=== PATIENT | female | born 1980 | race African-American/Black ===

== ENCOUNTER 2017-03-14 18:57 | Emergency (ER) | payer BC, OTHER ==
[~2017-03-14] VITALS: Ht 157.5 cm; Wt 83.9 kg
[2017-03-14 19:02] VITALS: BP 119/58
[2017-03-14] MEDS ORDERED: CYCL10TA2 PO (19:46)
--- NOTE | 2017-03-14 19:46 | PHYS DOC ---
Past Medical History Past Medical History: No Pertinent History Past Surgical History: No Surgical History Additional Past Surgical Histo: anal abscess, DDD, BULGING DISCS Additional Information: 0.5 PPD Alcohol Use: Occasionally Drug Use: Marijuana Adult General Chief Complaint Chief Complaint: BACK PAIN - NO INJURY [facility] HPI Patient is a 37 year old female presents to the emergency department stating that she has having left back pain and discomfort. She states that the pain starts in her lower back and radiates up into the upper back She states that she wasn't quite sure how she injured it she states that she was trying to turn when the pain occurred. She states that she is having increased pain when lifting her left leg.. Patient denies any loss of bowel or bladder. Patient denies any trauma or injury. Review of Systems Review of Systems Constitutional: Denies fever or chills [] Eyes: Denies change in visual acuity, redness, or eye pain [] HENT: Denies nasal congestion or sore throat [] Respiratory: Denies cough or shortness of breath [] Cardiovascular: No additional information not addressed in HPI [] GI: Denies abdominal pain, nausea, vomiting, bloody stools or diarrhea [] : Denies dysuria or hematuria [] Musculoskeletal: Left lower to mid back pain denies joint pain [] Integument: Denies rash or skin lesions [] Neurologic: Denies headache, focal weakness or sensory changes [] Endocrine: Denies polyuria or polydipsia [] Allergies Allergies Allergies Coded Allergies Type Severity Reaction Last Updated Verified No Known Drug Allergies 09/18/13 No Physical Exam Physical Exam Constitutional: Well developed, well nourished, no acute distress, non-toxic appearance. [] HENT: Normocephalic, atraumatic, bilateral external ears normal, oropharynx moist, no oral exudates, nose normal. [] Eyes: PERRLA, EOMI, conjunctiva normal, no discharge. [] Neck: Normal range of motion, no tenderness, supple, no stridor. [] Cardiovascular:Heart rate regular rhythm, no murmur [] Lungs & Thorax: Bilateral breath sounds clear to auscultation [] Skin: Warm, dry, no erythema, no rash. [] Back: No cervical spine, thoracic spine tenderness noted, patient did have tenderness noted on the left paraspinal area from mid to lower back area. Extremities: No tenderness, no cyanosis, no clubbing, ROM intact, no edema. Increased discomfort noted with lifting of the left leg. Peripheral pulses 2+ good sensation noted to bilateral lower legs Neurologic: Alert and oriented X 3, normal motor function, normal sensory function, no focal deficits noted. [] Psychologic: Affect normal, judgement normal, mood normal. [] Current Patient Data Vital Signs Vital Signs Date Time Temp Pulse Resp B/P (MAP) Pulse Ox O2 Delivery O2 Flow Rate FiO2 03/14/17 19:02 98.1 99 20 98 Room Air 98.1 EKG EKG [] Radiology/Procedures Radiology/Procedures [] Course & Med Decision Making Course & Med Decision Making Pertinent Labs and Imaging studies reviewed. (See chart for details) Patient states that she drove herself here to the emergency department. She was instructed that she can take anywhere from 600-800 mg of ibuprofen every 8 hours with food. Patient will be provided with a prescription for Flexeril to take she was instructed that this medication will cause drowsiness do not take any be alert and oriented. Patient was also instructed to use ice packs on 20 minutes off 20 minutes several times today. Patient agrees with discharge instructions treatment regimens and follow-up recommendations were in which she was instructed to follow-up with her primary care physician in the next 7-10 days. [] Dragon Disclaimer Dragon Disclaimer This electronic medical record was generated, in whole or in part, using a voice recognition dictation system. Departure Departure Impression: Primary Impression: Back strain Disposition: 01 HOME, SELF-CARE Condition: STABLE Referrals: KARL BLISS MD (PCP) Patient Instructions: Back Pain, Adult, [id number] Additional Instructions: Activity as tolerated. Medications as prescribed. Flexeril will cause drowsiness do not take any be alert and oriented. Ibuprofen 600-800 mg every 8 hours with food. Stop taking if you develop an upset stomach. Ice packs on 20 minutes off 20 minutes several times a day. Follow-up to primary care physician next 7-10 days. Return back to emergency prior signs symptoms of become worse. Scripts Cyclobenzaprine Hcl (CYCLOBENZAPRINE HCL) 10 Mg Tablet 10 MG PO TID, #30 TAB Prov: VENUS CARPIO APRN 03/14/17 VENUS CARPIO APRN Mar 14, 2017 19:46
== END 2017-03-14 19:50 | disposition home or self-care (01) ==
LOC: ER 18:57
DX: S39.012A Strain of muscle, fascia and tendon of lower back, initial encounter (principal); S29.012A Strain of muscle and tendon of back wall of thorax, initial encounter; F17.200 Nicotine dependence, unspecified, uncomplicated; F12.10 Cannabis abuse, uncomplicated; X50.9XXA Other and unspecified overexertion or strenuous movements or postures, initial encounter; Y93.89 Activity, other specified; Y99.8 Other external cause status; Y92.89 Other specified places as the place of occurrence of the external cause
CPT/HCPCS: 99283

== ENCOUNTER 2017-04-18 07:59 | Emergency (ER) | payer BC, OTHER ==
[~2017-04-18] VITALS: Ht 154.9 cm; Wt 83.9 kg
[~2017-04-18 07:59] MED LIST: CYCL10TA2 PO
[2017-04-18 08:09] VITALS: BP 128/75
--- NOTE | 2017-04-18 08:34 | PHYS DOC ---
Past Medical History Past Medical History: No Pertinent History Past Surgical History: No Surgical History Additional Past Surgical Histo: anal abscess, DDD, BULGING DISCS Alcohol Use: Occasionally Drug Use: Marijuana Adult General Chief Complaint Chief Complaint: FOOT INJURY PAIN HPI HPI Patient is a 37 year old female presents to the emergency department with a history of taking the trash out last night when she missed the last step and fell. She states she rolled her left ankle. She now has pain in the left knee and left ankle. Swelling noted to the left lateral ankle. No bruising or discoloration noted. Patient states she has not been able to bear weight. Patient denies taking any medication for pain, denies the use of ice packs. Patient has good sensation noted to the foot and toes. Review of Systems Review of Systems Constitutional: Denies fever or chills [] Eyes: Denies change in visual acuity, redness, or eye pain [] HENT: Denies nasal congestion or sore throat [] Respiratory: Denies cough or shortness of breath [] Cardiovascular: No additional information not addressed in HPI [] GI: Denies abdominal pain, nausea, vomiting, bloody stools or diarrhea [] : Denies dysuria or hematuria [] Musculoskeletal: Denies back pain. C/o left knee and left ankle pain Integument: Denies rash or skin lesions [] Neurologic: Denies headache, focal weakness or sensory changes [] Endocrine: Denies polyuria or polydipsia [] Current Medications Current Medications Current Medications Medications (Trade) Dose Ordered Sig/Nia Start Time Stop Time Status Last Admin Dose Admin Ibuprofen (Motrin) 800 mg 1X ONCE 04/18/17 08:45 04/18/17 08:46 DC 04/18/17 08:23 800 MG Allergies Allergies Allergies Coded Allergies Type Severity Reaction Last Updated Verified No Known Drug Allergies 09/18/13 No Physical Exam Physical Exam Constitutional: Well developed, well nourished, no acute distress, non-toxic appearance. [] HENT: Normocephalic, atraumatic, bilateral external ears normal, oropharynx moist, no oral exudates, nose normal. [] Eyes: PERRLA, EOMI, conjunctiva normal, no discharge. [] Neck: Normal range of motion, no tenderness, supple, no stridor. [] Cardiovascular:Heart rate regular rhythm Lungs & Thorax: no respiratory distress Skin: Warm, dry, no erythema, no rash. [] Back: No tenderness Extremities: Left medial knee and left lateral ankle tenderness, no cyanosis, no clubbing, ROM intact, no edema. Patient with swelling to left lateral ankle. Peripheral pulses 2+ cap refill brisk < 2 seconds. Patient is able to move toes without difficulty, Patient with good sensation noted. Neurologic: Alert and oriented X 3, normal motor function, normal sensory function, no focal deficits noted. [] Psychologic: Affect normal, judgement normal, mood normal. [] Current Patient Data Vital Signs Vital Signs Date Time Temp Pulse Resp B/P (MAP) Pulse Ox O2 Delivery O2 Flow Rate FiO2 04/18/17 08:09 98.0 97 20 99 Room Air 98.0 EKG EKG [] Radiology/Procedures Radiology/Procedures [][address] [address] IMAGING REPORT Signed PATIENT: PIERO ANDREWS ACCOUNT: [id number] : 1980 LOCATION: ER AGE: 37 SEX: F EXAM STATUS: REG ER ORD. PHYSICIAN: VENUS CARPIO APRN REASON: fell and twisted ankle and knee, LAST NIGHT, NO SURGERY PROCEDURE: ANKLE LEFT 3V Left ankle radiograph 3 views 04/18/2017 Clinical indication: Twisted left ankle and knee, left ankle pain. Comparison: None. Findings: No acute fracture or traumatic malalignment. There is moderate soft tissue swelling about the ankle. Joint spaces are maintained. Impression: Moderate soft tissue swelling about the ankle without acute osseous abnormality. DICTATED and SIGNED BY: THAIS BERGMAN MD DATE: 04/18/17 0909 CC: VENUS CARPIO APRN; KARL BLISS MD ~ [address] [address] IMAGING REPORT Signed PATIENT: PIERO ANDREWS ACCOUNT: [id number] : 1980 LOCATION: ER AGE: 37 SEX: F EXAM STATUS: PRE ER ORD. PHYSICIAN: VENUS CARPIO APRN REASON: fell and twisted ankle and knee, LAST NIGHT, NO SURGERY PROCEDURE: KNEE LEFT 4V Left knee radiograph 4 views Indication: Fell and twisted ankle and knee last night, left knee pain. Comparison: None. Findings: No acute fracture or traumatic malalignment. Joint spaces are maintained. No significant knee joint effusion. Impression: No acute osseous abnormality. DICTATED and SIGNED BY: THAIS BERGMAN MD DATE: 04/18/17906 CC: VENUS CARPIO APRN; KARL BLISS MD ~ Course & Med Decision Making Course & Med Decision Making Pertinent Labs and Imaging studies reviewed. (See chart for details) X-rays: 4 view knee, 3 view ankle negative for bony abnormality. Patient will be placed in massimo wrap and splint. Patient will be discharged home in stable condition. Signs and symptoms to return to the emergency department has been provided. Patient was encouraged to use Tylenol or ibuprofen for pain and discomfort. Packs on 20 minutes off 20 minutes several times a day elevation as much as possible. We'll provide her with orthopedic name and number to follow- up with she continues to have pain and discomfort within the next week. Have him provided with discharge instructions and treatment regimen. She states she is unable to bear weight on the ankle with the Air-Stirrup splint. She will be placed on crutches. Patient is very upset that she is not getting anything stronger than Tylenol or ibuprofen for pain and discomfort. Explained to patient that with nothing fractured this medication is the treatment of choice. Ice packs elevation is the treatment regimen with the Massimo wrap. Patient starts telling me she has 2 younger children that she has to take care of him be able to get around 2 to help with. Plain to patient that without there being a fracture Tylenol and ibuprofen is the treatment of choice. [] Dragon Disclaimer Dragon Disclaimer This electronic medical record was generated, in whole or in part, using a voice recognition dictation system. Departure Departure Impression: Primary Impression: Left ankle sprain Additional Impression: Left knee pain Disposition: HOME, SELF-CARE Condition: STABLE Referrals: KARL BLISS MD (PCP) LENORE MEDINA II, MD Patient Instructions: Ankle Sprain, [id number], Knee Pain, [id number] Additional Instructions: Activity as tolerated Tylenol or Ibuprofen for pain and discomfort Ice packs on 20 minutes and off 20 minutes several times a day Elevation as much as possible Wear the massimo wrap for the next 5-7 days Wear the air stirrup splint for the 7-10 days Followup with orthopedic in 7-10 days Return to emergency department as needed Problem Qualifiers VENUS CARPIO APRN Apr 18, 2017 08:34
[2017-04-18] MEDS ORDERED: IBUPROFEN 800 MG TABLET. PO ONE (08:45)
--- NOTE | 2017-04-18 09:11 | RAD ---
Left knee radiograph 4 views Indication: Fell and twisted ankle and knee last night, left knee pain. Comparison: None. Findings: No acute fracture or traumatic malalignment. Joint spaces are maintained. No significant knee joint effusion. Impression: No acute osseous abnormality.
--- NOTE | 2017-04-18 09:15 | RAD ---
Left ankle radiograph 3 views 04/18/2017 Clinical indication: Twisted left ankle and knee, left ankle pain. Comparison: None. Findings: No acute fracture or traumatic malalignment. There is moderate soft tissue swelling about the ankle. Joint spaces are maintained. Impression: Moderate soft tissue swelling about the ankle without acute osseous abnormality.
== END 2017-04-18 09:40 | disposition home or self-care (01) ==
LOC: ER 07:59
DX: S93.402A Sprain of unspecified ligament of left ankle, initial encounter (principal); M25.562 Pain in left knee; F12.10 Cannabis abuse, uncomplicated; W00.1XXA Fall from stairs and steps due to ice and snow, initial encounter; Y93.89 Activity, other specified; Y92.89 Other specified places as the place of occurrence of the external cause; Y99.8 Other external cause status
CPT/HCPCS: 29515; 73564; 73610; 99284-25; 99285-25

== ENCOUNTER 2017-12-09 23:32 | Emergency (ER) | payer OTHER, BC ==
[2017-12-10 00:02] LABS: URINE HCG POC HCG NEGATIVE (Negative)
[2017-12-10 00:26] LABS: ADD MAN DIFF? NO
[2017-12-10 00:30] LABS: BASO % 0 % (0-3); EOS # 0.1 x10^3/uL (0.0-0.7); EOS % 1 % (0-3); HEMATOCRIT 35.8 % (36.0-47.0); HEMOGLOBIN 12.2 g/dL (12.0-15.5); LYMPH # 3.4 x10^3/uL (1.0-4.8); LYMPH % 48 % (24-48); MEAN CORPUSCULAR HEMOGLOBIN 34 pg (25-35); MEAN CORPUSCULAR HGB CONC 34 g/dL (31-37); MEAN CORPUSCULAR VOLUME 99 fL (79-100); MONO # 0.4 x10^3/uL (0.0-1.1); MONO % 6 % (0-9); NEUT # 3.3 x10^3uL (1.8-7.7); NEUT % 46 % (31-73); PLATELET COUNT 262 x10^3/uL (140-400); RED BLOOD COUNT 3.61 x10^6/uL (3.50-5.40); RED CELL DISTRIBUTION WIDTH 13.2 % (11.5-14.5); WHITE BLOOD COUNT 7.2 x10^3/uL (4.0-11.0)
[2017-12-10 00:42] LABS: ANION GAP 9 (6-14); BLOOD UREA NITROGEN 11 mg/dL (7-20); CALCIUM 8.2 mg/dL (8.5-10.1); CARBON DIOXIDE 27 mmol/L (21-32); CHLORIDE 108 mmol/L (98-107); GFR 74.7; GLUCOSE 99 mg/dL (70-99); POTASSIUM 3.5 mmol/L (3.5-5.1); SODIUM 144 mmol/L (136-145)
[2017-12-10] MEDS: IV NORMAL SALINE 1000ML BAG 1,000 ML IV (00:45)
[2017-12-10] MEDS: CYCLOBENZAPRINE 10 MG TABLET. PO (01:20)
[2017-12-10] MEDS: AZITHROMYCIN 250 MG TABLET. PO (01:20)
[2017-12-10] MEDS: KETOROLAC 15 MG/ML VIAL. IV (01:21)
[2017-12-10] MEDS: METOCLOPRAMIDE HCL 10 MG/2 ML VIAL. IV (01:21)
== END 2017-12-10 01:39 | disposition home or self-care (01) ==
LOC: ER 23:32
DX: S39.012A Strain of muscle, fascia and tendon of lower back, initial encounter (principal); J32.9 Chronic sinusitis, unspecified; G89.29 Other chronic pain; F12.10 Cannabis abuse, uncomplicated; X58.XXXA Exposure to other specified factors, initial encounter; Y93.89 Activity, other specified; Y99.8 Other external cause status; Y92.89 Other specified places as the place of occurrence of the external cause
CPT/HCPCS: 36415; 80048; 81025; 85025; 96361; 96374; 96375; 99284-25; J1885; J2765; J7030; Q0144

== ENCOUNTER 2021-04-06 12:07 | Emergency (ER) | payer OTHER ==
[~2021-04-06 12:07] MED LIST changes: +AZIT250T PO; +TRAM-48 PO
[2021-04-06] MEDS ORDERED: FAMOTIDINE 20 MG/2 ML VIAL IVP ONE (13:15)
[2021-04-06] MEDS ORDERED: fentaNYL PF VIAL 100 MCG/2 ML VIAL IVP ONE (13:15)
[2021-04-06] MEDS ORDERED: ONDANSETRON PF 4 MG/2 ML VIAL. IVP ONE (13:15)
[2021-04-06 13:21] LABS: BASO # 0.1 x10^3/uL (0.0-0.2); BASO % 1 % (0-3); EOS % 1 % (0-3); HEMATOCRIT 40.3 % (36.0-47.0); HEMOGLOBIN 13.7 g/dL (12.0-15.5); LYMPH # 1.3 x10^3/uL (1.0-4.8); LYMPH % 23 % (24-48); MEAN CORPUSCULAR HEMOGLOBIN 36 pg (25-35); MEAN CORPUSCULAR HGB CONC 34 g/dL (31-37); MEAN CORPUSCULAR VOLUME 105 fL (79-100); MONO # 0.4 x10^3/uL (0.0-1.1); MONO % 7 % (0-9); NEUT # 3.8 x10^3/uL (1.8-7.7); NEUT % 68 % (31-73); PLATELET COUNT 246 x10^3/uL (140-400); RED BLOOD COUNT 3.84 x10^6/uL (3.50-5.40); RED CELL DISTRIBUTION WIDTH 13.7 % (11.5-14.5); WHITE BLOOD COUNT 5.6 x10^3/uL (4.0-11.0)
[2021-04-06 13:25] LABS: BILIRUBIN,URINE NEGATIVE (NEG); CLARITY,URINE CLEAR; COLOR,URINE YELLOW; NITRITE,URINE NEGATIVE (NEG); PH,URINE 6.5 (<5.0-8.0); PROTEIN,URINE NEGATIVE (NEG-TRACE); UROBILINOGEN,URINE 0.2 mg/dL (0.2 mg/dL)
[2021-04-06] MEDS ORDERED: IV NORMAL SALINE 1000ML BAG 1,000 ML IV ONE (13:30)
[2021-04-06 13:33] LABS: AMPHETAMINE/METHAMPHETAMINE NEG (NEG); BARBITURATES NEG (NEG); BENZODIAZEPINES NEG (NEG); CANNABINOIDS POS (NEG); COCAINE POS (NEG); METHADONE NEG (NEG); OPIATES NEG (NEG); PHENCYCLIDINE NEG (NEG)
[2021-04-06 13:41] LABS: CALCIUM 8.9 mg/dL (8.5-10.1); CREATININE 0.8 mg/dL (0.6-1.0); GFR 94.7; POTASSIUM 4.3 mmol/L (3.5-5.1)
[2021-04-06 13:48] LABS: TRICHOMONAS,URINE PRESENT
[2021-04-06 13:48] LABS: ALBUMIN 3.9 g/dL (3.4-5.0); ALBUMIN/GLOBULIN RATIO 1.2 (1.0-1.7); TOTAL BILIRUBIN 0.3 mg/dL (0.2-1.0); TOTAL PROTEIN 7.2 g/dL (6.4-8.2)
[2021-04-06 13:49] LABS: BACTERIA,URINE FEW /HPF (0-FEW)
[2021-04-06] MEDS ORDERED: CONTRAST GIVEN. MC PRN (14:00)
[2021-04-06] MEDS ORDERED: IOHEXOL 300 MG/ML 100ML VIAL. IV ONE (14:00)
--- NOTE | 2021-04-06 14:19 | RAD ---
INDICATION : Reason: RUQ pain / Spl. Instructions: / History: COMPARISON: CT April 2013 TECHNIQUE: Multiple ultrasound images obtained through the abdomen in grayscale and color. FINDINGS: Pancreas: No gross abnormality identified in visualized portions of pancreas. Liver: Borderline echogenic. Mild fatty infiltration not excluded. Gallbladder: Contracted. IVC: Partially distended at level of liver. Common Bile Duct: Not dilated. Right Kidney: No hydronephrosis. IMPRESSION: * Gallbladder contracted without common bile duct dilation. Electronically signed by: Willy Whiting MD (04/06/2021 2:17 PM) [id number]
--- NOTE | 2021-04-06 14:29 | RAD ---
Examination: CT of the abdomen pelvis with IV contrast HISTORY: History of right upper quadrant pain, flank pain COMPARISON: 04/21/2013 Technique: Axial CT images of the abdomen pelvis were performed with IV contrast. Coronal and sagitta l reformats are performed Exposure: One or more of the following individualized dose reduction techniques were utilized for thi s examination: 1. Automated exposure control 2. Adjustment of the mA and/or kV according to patient size 3. Use of iterative reconstruction technique FINDINGS: Mild bibasilar lung atelectasis. No evidence of free air identified in the abdomen. The visualized li lauren, spleen, and adrenals grossly appears unremarkable. The gallbladder is mildly distended. The stom ach is mildly distended. The visualized pancreas grossly appears unremarkable. Small bowel is nondila won. The appendix is normal. Feces and gas identified in the colon. Urinary bladder is mildly distend ed. The bilateral kidneys enhance symmetrically. No evidence of lytic bony destructive lesion. IMPRESSION: No acute intra-abdominal findings. Electronically signed by: Reza Vasquez MD (04/06/2021 2:27 PM) [id number]
[2021-04-06] MEDS ORDERED: metroNIDAZOLE 500 MG TABLET PO ONE (14:30)
[2021-04-06] MEDS ORDERED: cefTRIAXone IV Push 1 GM VIAL. IVP ONE (14:30)
[2021-04-06] MEDS ORDERED: DOXYCYCLINE HYCLATE 100 MG TABLET PO ONE (14:30)
[2021-04-06 15:23] VITALS: BP 142/97
[2021-04-06] MEDS ORDERED: CEPH500T PO (15:38)
[2021-04-06] MEDS ORDERED: DOXY100T PO (15:38)
--- NOTE | 2021-04-06 15:39 | PHYS DOC ---
Past Medical History Past Medical History: No Pertinent History, Other Additional Past Medical Histor: CHRONIC BACK PAIN Past Surgical History: No Surgical History Additional Past Surgical Histo: anal abscess, DDD, BULGING DISCS Smoking Status: Current Every Day Smoker Alcohol Use: Heavy Additional Information: DRINKS 4-5 BEERS DAILY. OVER THE WEEKEND PT DRANK HEAVILY FOR 3 DAYS. Drug Use: Marijuana General Adult EDM: Chief Complaint: ABDOMINAL PAIN HPI: HPI: Patient is a 41 year old female who presents to the ED today complaining of 8 out of 10 right upper quadrant abdominal pain radiating to the right flank region, symptoms began 4 days ago. Patient is also complaining of diarrhea 4 days ago. Denies any fever. She is complaining of odorous vaginal discharge and concern for STDs. Denies any nausea, vomiting.Denies anything specifically exacerbating or relieving her pain. Review of Systems: Review of Systems: Constitutional: Denies fever or chills. [] Eyes: Denies change in visual acuity. [] HENT: Denies nasal congestion or sore throat. [] Respiratory: Denies cough or shortness of breath. [] Cardiovascular: Denies chest pain or edema. Abdomen: Reports right upper quadrant abdominal pain, denies any nausea vomiting, reports diarrhea : Reports malodorous vaginal discharge, Musculoskeletal: Denies back pain or joint pain. [] Integument: Denies rash. [] Neurologic: Denies headache, focal weakness or sensory changes. [] Psychiatric: Denies depression or anxiety. [] Heart Score: C/O Chest Pain: N/A Risk Factors: Risk Factors: DM, Current or recent (<one month) smoker, HTN, HLP, family histo ry of CAD, obesity. Risk Scores: Score 0 - 3: 2.5% MACE over next 6 weeks - Discharge Home Score 4 - 6: 20.3% MACE over next 6 weeks - Admit for Clinical Observation Score 7 - 10: 72.7% MACE over next 6 weeks - Early Invasive Strategies Current Medications: Current Medications Medications (Trade) Dose Ordered Sig/Nia Start Time Stop Time Status Last Admin Dose Admin Ceftriaxone Sodium (Rocephin) 1 gm 1X ONCE 04/06/21 14:30 04/06/21 14:31 DC 04/06/21 15:07 1 GM Doxycycline Hyclate (Vibra-Tab) 100 mg 1X ONCE 04/06/21 14:30 04/06/21 14:31 DC 04/06/21 15:07 100 MG Famotidine (Pepcid Vial) 20 mg 1X ONCE 04/06/21 13:15 04/06/21 13:16 DC 04/06/21 13:57 20 MG Fentanyl Citrate (Fentanyl 2ml Vial) 50 mcg 1X ONCE 04/06/21 13:15 04/06/21 13:16 DC 04/06/21 13:57 50 MCG Info (CONTRAST GIVEN -- Rx MONITORING) 1 each PRN DAILY PRN 04/06/21 14:00 04/08/21 13:59 Iohexol (Omnipaque 300 Mg/ml) 75 ml 1X ONCE 04/06/21 14:00 04/06/21 14:01 DC Metronidazole (Flagyl) 2,000 mg 1X ONCE 04/06/21 14:30 04/06/21 14:31 DC 04/06/21 15:06 2,000 MG Ondansetron HCl (Zofran) 4 mg 1X ONCE 04/06/21 13:15 04/06/21 13:16 DC 04/06/21 13:57 4 MG Sodium Chloride 1,000 ml @ 1,000 mls/hr 1X ONCE 04/06/21 13:30 04/06/21 14:29 DC 04/06/21 13:58 1,000 MLS/HR Allergies: Allergies: Allergies Coded Allergies Type Severity Reaction Last Updated Verified No Known Drug Allergies 09/18/13 No Physical Exam: PE: Constitutional: Well developed, well nourished, no acute distress, non-toxic appearance. [] HENT: Normocephalic, atraumatic, bilateral external ears normal, oropharynx moist, no oral exudates, nose normal. [] Eyes: PERRLA, EOMI, conjunctiva normal, no discharge. [] Neck: Normal range of motion, no tenderness, supple, no stridor. [] Cardiovascular:Heart rate regular rhythm, no murmur [] Lungs & Thorax: Bilateral breath sounds clear to auscultation [] Abdomen: Bowel sounds normal, soft, diffuse tenderness to the right upper quadrant with negative Guy sign, no right lower quadrant tenderness, no masses, no pulsatile masses. [] Skin: Warm, dry, no erythema, no rash. [] Back: No tenderness, mild right CVA tenderness. [] Extremities: No tenderness, no cyanosis, no clubbing, ROM intact, no edema. [] Neurologic: Alert and oriented X 3, normal motor function, normal sensory function, no focal deficits noted. [] Psychologic: Affect normal, judgement normal, mood normal. [] Current Patient Data: Labs: Laboratory Tests Test 04/06/21 12:42 04/06/21 12:46 04/06/21 13:05 Urine Collection Type Void Urine Color Yellow Urine Clarity Clear Urine pH 6.5 (<5.0-8.0) Urine Specific [place] 1.015 (1.000-1.030) Urine Protein Negative mg/dL (NEG-TRACE) Urine Glucose (UA) Negative mg/dL (NEG) Urine Ketones (Stick) Negative mg/dL (NEG) Urine Blood Small (NEG) Urine Nitrite Negative (NEG) Urine Bilirubin Negative (NEG) Urine Urobilinogen Dipstick 0.2 mg/dL (0.2 mg/dL) Urine Leukocyte Esterase Moderate (NEG) Urine RBC 1-2 /HPF (0-2) Urine WBC 5-10 /HPF (0-4) Urine Squamous Epithelial Cells Mod /LPF Urine Bacteria Few /HPF (0-FEW) Urine Trichomonas Present Urine Opiates Screen Neg (NEG) Urine Methadone Screen Neg (NEG) Urine Barbiturates Neg (NEG) Urine Phencyclidine Screen Neg (NEG) Urine Amphetamine/Methamphetamine Neg (NEG) Urine Benzodiazepines Screen Neg (NEG) Urine Cocaine Screen Pos (NEG) Urine Cannabinoids Screen Pos (NEG) Urine Ethyl Alcohol Neg (NEG) POC Urine HCG, Qualitative Hcg negative (Negative) White Blood Count 5.6 x10^3/uL (4.0-11.0) Red Blood Count 3.84 x10^6/uL (3.50-5.40) Hemoglobin 13.7 g/dL (12.0-15.5) Hematocrit 40.3 % (36.0-47.0) Mean Corpuscular Volume 105 fL (79-100) H Mean Corpuscular Hemoglobin 36 pg (25-35) H Mean Corpuscular Hemoglobin Concent 34 g/dL (31-37) Red Cell Distribution Width 13.7 % (11.5-14.5) Platelet Count 246 x10^3/uL (140-400) Neutrophils (%) (Auto) 68 % (31-73) Lymphocytes (%) (Auto) 23 % (24-48) L Monocytes (%) (Auto) 7 % (0-9) Eosinophils (%) (Auto) 1 % (0-3) Basophils (%) (Auto) 1 % (0-3) Neutrophils # (Auto) 3.8 x10^3/uL (1.8-7.7) Lymphocytes # (Auto) 1.3 x10^3/uL (1.0-4.8) Monocytes # (Auto) 0.4 x10^3/uL (0.0-1.1) Eosinophils # (Auto) 0.0 x10^3/uL (0.0-0.7) Basophils # (Auto) 0.1 x10^3/uL (0.0-0.2) Sodium Level 138 mmol/L (136-145) Potassium Level 4.3 mmol/L (3.5-5.1) Chloride Level 103 mmol/L (98-107) Carbon Dioxide Level 28 mmol/L (21-32) Anion Gap 7 (6-14) Blood Urea Nitrogen 11 mg/dL (7-20) Creatinine 0.8 mg/dL (0.6-1.0) Estimated GFR (Cockcroft-Gault) 94.7 BUN/Creatinine Ratio 14 (6-20) Glucose Level 91 mg/dL (70-99) Calcium Level 8.9 mg/dL (8.5-10.1) Total Bilirubin 0.3 mg/dL (0.2-1.0) Aspartate Amino Transferase (AST) 21 U/L (15-37) Alanine Aminotransferase (ALT) 25 U/L (14-59) Alkaline Phosphatase 63 U/L (46-116) Total Protein 7.2 g/dL (6.4-8.2) Albumin 3.9 g/dL (3.4-5.0) Albumin/Globulin Ratio 1.2 (1.0-1.7) Lipase 65 U/L (73-393) L Ethyl Alcohol Level < 10 mg/dL (0-10) Laboratory Tests 04/06/21 13:05 Laboratory Tests 04/06/21 13:05 Vital Signs: Vital Signs Date Time Temp Pulse Resp B/P (MAP) Pulse Ox O2 Delivery O2 Flow Rate FiO2 04/06/21 13:53 83 115/81 (92) 97 Room Air EKG: EKG: [] Radiology/Procedures: Radiology/Procedures: []PROCEDURE: ABDOMEN LTD INDICATION : Reason: RUQ pain / Spl. Instructions: / History: COMPARISON: CT April 2013 TECHNIQUE: Multiple ultrasound images obtained through the abdomen in grayscale and color. FINDINGS: Pancreas: No gross abnormality identified in visualized portions of pancreas. Liver: Borderline echogenic. Mild fatty infiltration not excluded. Gallbladder: Contracted. IVC: Partially distended at level of liver. Common Bile Duct: Not dilated. Right Kidney: No hydronephrosis. IMPRESSION: * Gallbladder contracted without common bile duct dilation. Electronically signed by: Olga Mueller MD (04/06/2021 2:17 PM) [id number] DICTATED and SIGNED BY: OLGA MUELLER MD DATE: 04/06/21 [id number] PROCEDURE: CT ABD PELV W/ IV CONTRST ONLY Examination: CT of the abdomen pelvis with IV contrast HISTORY: History of right upper quadrant pain, flank pain COMPARISON: 04/21/2013 Technique: Axial CT images of the abdomen pelvis were performed with IV contrast. Coronal and sagittal reformats are performed Exposure: One or more of the following individualized dose reduction techniques were utilized for this examination: 1. Automated exposure control 2. Adjustment of the mA and/or kV according to patient size 3. Use of iterative reconstruction technique FINDINGS: Mild bibasilar lung atelectasis. No evidence of free air identified in the abdomen. The visualized liver, spleen, and adrenals grossly appears unremarkable. The gallbladder is mildly distended. The stomach is mildly distended. The visualized pancreas grossly appears unremarkable. Small bowel is nondilated. The appendix is normal. Feces and gas identified in the colon. Urinary bladder is mildly distended. The bilateral kidneys enhance symmetrically. No evidence of lytic bony destructive lesion. IMPRESSION: No acute intra-abdominal findings. Electronically signed by: Reza Vasquez MD (04/06/2021 2:27 PM) [id number] DICTATED and SIGNED BY: REZA VASQUEZ MD DATE: 04/06/21 [id number] 0 Course & Med Decision Making: Course & Med Decision Making Pertinent Labs and Imaging studies reviewed. (See chart for details) Is a 31-year-old female patient presented to the ED today with right upper quadrant abdominal pain radiating to the flank region since Tuesday as well as diarrhea. Patient is concerned about STDs. CBC CMP with no acute findings, UA noted for trichomonas and moderate amount of leukocytes. CT of the abdomen and pelvis is negative, right upper quadrant limited ultrasoun d is negative. Treated for STDs in the ED with Rocephin and Flagyl, discharged on doxycycline to complete STD treatment and cephalexin for UTI. Follow-up with her own PCP. Nayeli Disclaimer: Nayeli Disclaimer: This electronic medical record was generated, in whole or in part, using a voice recognition dictation system. Departure Departure Impression: Primary Impression: UTI (urinary tract infection) Qualified Codes: N39.0 - Urinary tract infection, site not specified Additional Impressions: Trichomonas infection Diarrhea Qualified Codes: R19.7 - Diarrhea, unspecified Disposition: HOME / SELF CARE / HOMELESS Condition: STABLE Referrals: NO PCP (PCP) follow up with your doctor next week Patient Instructions: Trichomoniasis, Urinary Tract Infection Additional Instructions: You were evaluated in the emergency room, you are positive for trichomonas, this is a sexually transmitted disease. Please complete the prescribed doxycycline. You also have urinary tract infection. Take the cephalexin prescribed for UTI. Please follow-up with your primary care doctor next week. Please do not have any intercourse for 2 weeks. Use protection at night. Let your partners know you are positive for trichomonas and ask them to seek treatment too Scripts Cephalexin (CEPHALEXIN) 500 Mg Tablet 1 TAB PO BID, #14 TAB Prov: TAMI ALVARADO QUARRY EQUIPMENT OPERATOR 04/06/21 Doxycycline Hyclate (DOXYCYCLINE HYCLATE) 100 Mg Tablet 1 TAB PO BID, #14 TAB Prov: TAMI ALVARADO QUARRY EQUIPMENT OPERATOR 04/06/21 TAMI ALVARADO QUARRY EQUIPMENT OPERATOR Apr 06, 2021 15:39
== END 2021-04-06 15:55 | disposition home or self-care (01) ==
LOC: ER 12:07
DX: N39.0 Urinary tract infection, site not specified (principal); A59.9 Trichomoniasis, unspecified; R19.7 Diarrhea, unspecified; G89.29 Other chronic pain; F17.200 Nicotine dependence, unspecified, uncomplicated; F10.20 Alcohol dependence, uncomplicated; Y90.9 Presence of alcohol in blood, level not specified
CPT/HCPCS: 36415; 74177; 76705; 80053; 80307; 81001; 81025; 83690; 85025; 87086; 96361; 96374; 96375; 99285; G0480; J0696; J2405; J3010; J3490; J7030

== ENCOUNTER 2021-07-02 15:15 | Emergency (ER) | payer OTHER ==
[~2021-07-02] VITALS: Ht 154.9 cm; Wt 76.0 kg
[~2021-07-02 15:15] MED LIST changes: +CEPH500T PO; +DOXY100T PO
[2021-07-02 16:11] LABS: BILIRUBIN,URINE NEGATIVE (NEG); CLARITY,URINE CLEAR; COLOR,URINE YELLOW; NITRITE,URINE NEGATIVE (NEG); PH,URINE 6.5 (<5.0-8.0); PROTEIN,URINE NEGATIVE (NEG-TRACE); UROBILINOGEN,URINE 0.2 mg/dL (0.2 mg/dL)
[2021-07-02 16:24] LABS: BACTERIA,URINE 0 /HPF (0-FEW); WBC,URINE 0 /HPF (0-4)
--- NOTE | 2021-07-02 17:32 | PHYS DOC ---
Past Medical History Past Medical History: No Pertinent History, Other Additional Past Medical Histor: lupus (TAMI ALVARADO [employer] COMPUTER SYSTEMS DESIGNER) Past Surgical History: Tubal ligation Additional Past Surgical Histo: anal abscess, DDD, BULGING DISCS (TAMI ALVARADO [employer] COMPUTER SYSTEMS DESIGNER) Smoking Status: Current Every Day Smoker Alcohol Use: None Drug Use: Marijuana (TAMI ALVARADO [employer] COMPUTER SYSTEMS DESIGNER) General Adult EDM: Chief Complaint: VAGINAL PROBLEM HPI: HPI: Patient is a 41 year old female who presents to the ED today complaining of vaginal itching and burning, symptoms began 2 days ago. Patient denies any concerns for STDs. Denies any urgency frequency or dysuria. She states she has used [id number] miconazole since last night, she also states she masturbated yesterday and used K-Y jelly which is still in her vagina (TAMI ALVARADO [employer] COMPUTER SYSTEMS DESIGNER) Review of Systems: Review of Systems: Constitutional: Denies fever or chills. [] GI: Reports vaginal pain, irritation. Denies abdominal pain, nausea, vomiting, bloody stools or diarrhea. [] : Denies dysuria. [] Musculoskeletal: Denies back pain or joint pain. [] Integument: Denies rash. [] Neurologic: Denies headache, focal weakness or sensory changes. [] Psychiatric: Denies depression or anxiety. [] (TAMI ALVARADO [employer] COMPUTER SYSTEMS DESIGNER) Heart Score: C/O Chest Pain: N/A Risk Factors: Risk Factors: DM, Current or recent (<one month) smoker, HTN, HLP, family hist ory of CAD, obesity. Risk Scores: Score 0 - 3: 2.5% MACE over next 6 weeks - Discharge Home Score 4 - 6: 20.3% MACE over next 6 weeks - Admit for Clinical Observation Score 7 - 10: 72.7% MACE over next 6 weeks - Early Invasive Strategies (ALEXSANDERChandlerTAMI Beltran COMPUTER SYSTEMS DESIGNER) Allergies: Allergies: Allergies Coded Allergies Type Severity Reaction Last Updated Verified No Known Drug Allergies 07/02/21 No (TAMI ALVARADO [employer] COMPUTER SYSTEMS DESIGNER) Physical Exam: PE: Constitutional: Well developed, well nourished, no acute distress, non-toxic appearance. [] Abdomen: Bowel sounds normal, soft, no tenderness, no masses, no pulsatile masses. [] Pelvic exam External pelvic appears normal, cervix is not visualized, patient has moderate amount of miconazole in her vaginal vault. I tried removing it but I could not get to the end, no CMT Skin: Warm, dry, no erythema, no rash. [] Back: No tenderness, no CVA tenderness. [] Extremities: No tenderness, no cyanosis, no clubbing, ROM intact, no edema. [] Neurologic: Alert and oriented X 3, normal motor function, normal sensory function, no focal deficits noted. [] Psychologic: Affect normal, judgement normal, mood normal. [] (TAMI ALVARADO APRN) Current Patient Data: Labs: Laboratory Tests Test 07/02/21 15:32 Urine Collection Type Unknown Urine Color Yellow Urine Clarity Clear Urine pH 6.5 (<5.0-8.0) Urine Specific [place] >=1.030 (1.000-1.030) Urine Protein Negative mg/dL (NEG-TRACE) Urine Glucose (UA) Negative mg/dL (NEG) Urine Ketones (Stick) Negative mg/dL (NEG) Urine Blood Negative (NEG) Urine Nitrite Negative (NEG) Urine Bilirubin Negative (NEG) Urine Urobilinogen Dipstick 0.2 mg/dL (0.2 mg/dL) Urine Leukocyte Esterase Negative (NEG) Urine RBC 1-2 /HPF (0-2) Urine WBC 0 /HPF (0-4) Urine Squamous Epithelial Cells Mod /LPF Urine Bacteria 0 /HPF (0-FEW) Urine Mucus Mod /LPF Vital Signs: Vital Signs Date Time Temp Pulse Resp B/P (MAP) Pulse Ox O2 Delivery O2 Flow Rate FiO2 07/02/21 15:30 98.2 85 19 136/88 (104) 100 Room Air 98.2 (TAMI ALVARADO APRN) EKG: EKG: [] (TAMI ALVARADO APRN) Radiology/Procedures: Radiology/Procedures: [] (TAMI ALVARADO APRN) Course & Med Decision Making: Course & Med Decision Making Pertinent Labs and Imaging studies reviewed. (See chart for details) This a 41-year-old female patient presented to the ED today with vaginal itching and irritation, symptoms began 2 days ago. She unfortunately had a lot of miconazole in her vaginal vault I could not do a full pelvic exam. She has no concerns for STDs, UA is negative, negative test. Discharge to home. Encourage her to finish the miconazole treatment and follow-up with her PATTERN ROOM ATTENDANT. Pending STD test on urine (TAMI ALVARADO APRN) Nayeli Disclaimer: Nayeli Disclaimer: This electronic medical record was generated, in whole or in part, using a voice recognition dictation system. (TAMI ALVARADO APRN) Departure Departure Impression: Primary Impression: Vaginal irritation Disposition: HOME / SELF CARE / HOMELESS Condition: STABLE Referrals: NO PCP (PCP) Follow-up with your doctor in 1 week Patient Instructions: Clotrimazole vaginal cream Additional Instructions: You were evaluated in the emergency room for vaginal irritation. Please continue using miconazole until you complete the dose. Follow-up with your do ctor next week Attending Signature I have participated in the care of this patient and I have reviewed and agree with all pertinent clinical information above including history, exam, and recommendations. (DARIN GRAVES DO) TAMI ALVARADO APRN Jul 02, 2021 17:32 DARIN GRAVES DO Jul 02, 2021 17:39
[2021-07-02 17:44] VITALS: BP 117/67
== END 2021-07-02 17:44 | disposition home or self-care (01) ==
LOC: ER 15:15
DX: R10.2 Pelvic and perineal pain (principal); L29.8 Other pruritus; F17.200 Nicotine dependence, unspecified, uncomplicated; Z98.51 Tubal ligation status
CPT/HCPCS: 81001; 87491; 87591; 99284